=== PATIENT | female | born 1950 | race Caucasian/White ===

== ENCOUNTER 2017-03-17 11:44 | Observation (INO) | payer MEDICARE, BC ==
[~2017-03-17] VITALS: Ht 162.6 cm; Wt 69.0 kg
[2017-03-17 11:53] VITALS: BP 132/76; PULSE 96; RESP 16; TEMP 97.9; O2SAT 98
[2017-03-17] MEDS ORDERED: IBAN150T3 PO (11:58)
[2017-03-17] MEDS ORDERED: PROZ40CA PO (11:58)
[2017-03-17] MEDS ORDERED: ZOCO40TA PO (11:58)
[2017-03-17] MEDS ORDERED: LEVO100T5 PO (11:58)
--- NOTE | 2017-03-17 13:07 | PD ---
HPI Chief Complaint: Injury Time Seen by Provider: 11:53 Travel History International Travel<30 days: No Contact w/Intl Traveler<30days: No Traveled to known affect area: No History of Present Illness HPI 66-year-old female presents emergency department for evaluation of right elbow pain. Patient reports approximately 4 hours ago she tripped while in her condo falling onto her right elbow/forearm. She denies head injury or loss consciousness. She reports throbbing pain only in the elbow worse with range of motion and relieved with rest. Severity 3/10. She denies numbness/tingling/ weakness in the extremity. Patient is right-hand dominant. Patient has full range of motion of the shoulder, elbow, wrist, fingers. She denies any other injury. PFSH Past Medical History Narrative Medical Significant for hyperlipidemia, depression, hypothyroidism Anxiety: Yes High Cholesterol: Yes Diminished Hearing: No Thyroid Disease: Yes Tetanus Vaccination: Unknown ?: Not Past Surgical History Hysterectomy: Yes Social History Alcohol Use: No Tobacco Use: No Substance Use: No Allergies-Medications (Allergen,Severity, Reaction): Coded Allergies: Penicillins (Verified Allergy, Unknown, 03/17/17) Reported Meds & Prescriptions Reported Meds & Active Scripts Active Reported Ibandronate (Ibandronate Sodium) 150 Mg Tab 150 Mg PO Q28D Levothyroxine (Levothyroxine Sodium) 100 Mcg Tab 100 Mcg PO DAILY Prozac (Fluoxetine HCl) 40 Mg Cap 40 Mg PO DAILY Zocor (Simvastatin) 40 Mg Tab 40 Mg PO DAILY Review of Systems Except as stated in HPI: all other systems reviewed are Neg General / Constitutional: No: Fever Eyes: No: Visual changes HENT: No: Headaches Cardiovascular: No: Chest Pain or Discomfort Respiratory: No: Shortness of Breath Gastrointestinal: No: Abdominal Pain Genitourinary: No: Dysuria Musculoskeletal: Positive: Pain (right elbow) Skin: No Rash Physical Exam Narrative GENERAL: Alert, well-appearing female in no acute distress. SKIN: Focused skin assessment warm/dry. 3 superficial abrasions to the right elbow. HEAD: Atraumatic. Normocephalic. EYES: Pupils equal and round. No scleral icterus. No injection or drainage. ENT: No nasal bleeding or discharge. Mucous membranes pink and moist. NECK: Trachea midline. No JVD. CARDIOVASCULAR: Regular rate and rhythm. No murmur appreciated. RESPIRATORY: No accessory muscle use. Clear to auscultation. Breath sounds equal bilaterally. GASTROINTESTINAL: Abdomen soft, non-tender, nondistended. Hepatic and splenic margins not palpable. MUSCULOSKELETAL: No obvious deformities. No clubbing. No cyanosis. Right upper extremity: Notable swelling and ecchymosis to the proximal portion of the ulna. Patient has full flexion and extension of the elbow. 2+ distal pulses. Normal sensation with 2-point discrimination. Brisk cap refill. NEUROLOGICAL: Awake and alert. No obvious cranial nerve deficits. Motor grossly within normal limits. Normal speech. PSYCHIATRIC: Appropriate mood and affect; insight and judgment normal. Data Data Last Documented VS Vital Signs Date Time Temp Pulse Resp B/P (MAP) Pulse Ox O2 Delivery O2 Flow Rate FiO2 03/17/17 11:53 97.9 96 16 132/76 (94) 98 Orders Orders Elbow, Complete (4 Vws) (03/17/17 ) Splint Or Brace Apply/Monitor (03/17/17 12:57) [facility] Medical Decision Making Medical Screen Exam Complete: Yes Emergency Medical Condition: Yes Differential Diagnosis Elbow fracture, forearm fracture, contusion Narrative Course 66-year-old female since emergency department for evaluation of right elbow pain status post trip and fall this morning. Patient has notable swelling and ecchymosis to the proximal forearm and elbow. There are 3 very superficial abrasions over the elbow. The patient has full range of motion and normal sensation within the extremity. X-ray pending X-ray of the right elbow: Olecranon fracture with 3 cm separation of fragments. Right upper extremity was placed in a posterior long arm splint and sling. Post -splint application reveal good alignment. The extremity is neurovascularly intact. 1315: Spoke with Dr. Jaimes tanning solution maker orthopedist who would like the patient admitted to medicine, nothing by mouth after midnight, and transferred to the [facility] for surgical repair tomorrow. Physician Communication Physician Communication 1315-spoke with Dr. Jaimes tanning solution maker orthopedist he would like patient admitted to medicine, nothing by mouth after midnight and transferred to the [facility] for surgery tomorrow. Diagnosis Primary Impression: Olecranon fracture Qualified Codes: S52.021A - Displaced fracture of olecranon process without intraarticular extension of right ulna, initial encounter for closed fracture Admitting Information Admitting Physician Requests: Admit Condition: Stable Ting Spears Mar 17, 2017 13:07
--- NOTE | 2017-03-17 13:11 | RADRPT ---
EXAM DATE/TIME: 03/17/2017 12:26 [facility] COMPARISON: No previous studies available for comparison. INDICATIONS : Right elbow pain after falling MEDICAL HISTORY : None. SURGICAL HISTORY : None. ENCOUNTER: Initial ACUITY: 1 day PAIN SCORE: 4/10 LOCATION: Right elbow FINDINGS: There is no fracture of the olecranon with 3 cm of distraction. The radial head is intact. The alicja kerry is intact. CONCLUSION: Olecranon fracture. Filipe Boggs MD FACR on March 17, 2017 at 13:09 Board Certified Radiologist. This report was verified electronically.
[2017-03-17 13:55] VITALS: O2SAT 98
[2017-03-17] MEDS ORDERED: MORPHINE SULFATE 4 MG/ML INJ IV PRN ×3 (14:00)
[2017-03-17] MEDS ORDERED: ACETAMINOPHEN/HYDROcodone 325 MG/10 MG TAB PO PRN (14:00)
[2017-03-17] MEDS ORDERED: SODIUM CHLORIDE 0.9% FLUSH 10 ML FLUSH IV FLUSH PRN (14:00)
[2017-03-17] MEDS ORDERED: SENNOSIDES 8.6 MG TAB PO PRN (14:00)
[2017-03-17] MEDS ORDERED: LACTULOSE SYRUP 20 GM/30 ML CUP PO PRN (14:00)
[2017-03-17] MEDS ORDERED: NALOXONE HCL 0.4 MG/ML AMP IV PRN (14:00)
[2017-03-17] MEDS ORDERED: BISACODYL 10 MG SUPP RECTAL PRN (14:00)
[2017-03-17] MEDS ORDERED: ONDANSETRON HCL 4 MG/2 ML VIAL IVP PRN (14:00)
[2017-03-17] MEDS ORDERED: ACETAMINOPHEN/HYDROcodone 325 MG/5 MG TAB PO PRN (14:00)
[2017-03-17] MEDS ORDERED: MAGNESIUM HYDROXIDE SUSP 30 ML CUP PO PRN (14:00)
[2017-03-17] MEDS ORDERED: ACETAMINOPHEN 325 MG TAB PO PRN ×2 (14:00)
[2017-03-17] MEDS ORDERED: ACETAMINOPHEN/HYDROcodone 325 MG/5 MG TAB PO ONE (14:15)
[2017-03-17 14:30] LABS: POTASSIUM 4.2 MEQ/L (3.5-5.1)
[2017-03-17 14:33] LABS: BICARBONATE 23.7 MEQ/L (21.0-32.0)
[2017-03-17 14:34] LABS: APTT (PATIENT) 22.1 SEC (24.3-30.1); PROTHROMBIN TIME - PATIENT 10.5 SEC (9.8-11.6)
--- NOTE | 2017-03-17 15:08 | RADRPT ---
EXAM DATE/TIME: 03/17/2017 13:48 [facility] COMPARISON: No previous studies available for comparison. INDICATIONS : Evaluate for communicable disease, pneumonia, and pneumothorax. Right elbow surgery MEDICAL HISTORY : None. SURGICAL HISTORY : Breast Reduction ENCOUNTER: Initial ACUITY: 1 day PAIN SCORE: 0/10 LOCATION: Bilateral chest FINDINGS: A single view of the chest demonstrates the lungs to be symmetrically aerated without evidence of mas s, infiltrate or effusion. The cardiomediastinal contours are unremarkable. Osseous structures are intact. CONCLUSION: No acute disease. Filipe Boggs MD FACR on March 17, 2017 at 15:06 Board Certified Radiologist. This report was verified electronically.
[2017-03-17 15:10] LABS: AUTOMATED NEUTROPHIL # 6.8 TH/MM3 (1.8-7.7); BASOPHIL % 0.3 % (0.0-2.0); EOSINOPHIL # 0.1 TH/MM3 (0-0.4); EOSINOPHIL % 0.6 % (0.0-4.0); HEMATOCRIT 41.3 % (35.0-46.0); HEMO FLAGS DIFF FINAL; LYMPH % 14.3 % (9.0-44.0); LYMPHOCYTE # 1.3 TH/MM3 (1.0-4.8); MEAN CELL VOLUME 85.4 FL (80.0-100.0); MEAN CORPUSCULAR HEMOGLOBIN 28.7 PG (27.0-34.0); MEAN CORPUSCULAR HGB CONC 33.6 % (32.0-36.0); NEUT % 77.8 % (16.0-70.0); PLATELET COUNT 166 TH/MM3 (150-450); RED BLOOD COUNT 4.84 MIL/MM3 (4.00-5.30); RED CELL DISTRIBUTION WIDTH 12.9 % (11.6-17.2); WHITE BLOOD COUNT 8.8 TH/MM3 (4.0-11.0)
--- NOTE | 2017-03-17 15:24 | HHI.HP ---
HPI Service [facility] Primary Care Physician Non-Staff Admission Diagnosis RIGHT OLECRANON FX Diagnoses: Chief Complaint: Right elbow pain Travel History International Travel<30 Days: No Contact w/Intl Traveler <30 Da: No Traveled to Known Affected Are: No History of Present Illness This is a 66 year old female with history of hyperlipidemia, hypothyroidism and depression. She is visiting from [place]. 4 hours prior to admission, patient tripped in her condo falling onto her right elbow. Denies head injury, loss of consciousness, neck pain and other injuries. She reports of severe throbbing pain in the right elbow worse with range of motion. No numbness. She has sustained right olecranon fracture and orthopedic information director recommended admission to medical service and transfer to [facility]. At this time, patient has no complaints. All other systems reviewed negative Review of Systems Except as stated in HPI: all other systems reviewed are Neg Past Family Social History Past Medical History As previously mentioned Past Surgical History Hysterectomy Reported Medications Ibandronate (Ibandronate Sodium) 150 Mg Tab 150 Mg PO Q28D Levothyroxine (Levothyroxine Sodium) 100 Mcg Tab 100 Mcg PO DAILY Prozac (Fluoxetine HCl) 40 Mg Cap 40 Mg PO DAILY Zocor (Simvastatin) 40 Mg Tab 40 Mg PO DAILY Allergies: Coded Allergies: Penicillins (Verified Allergy, Unknown, 03/17/17) Physical Exam Vital Signs Vital Signs Date Time Temp Pulse Resp B/P (MAP) Pulse Ox O2 Delivery O2 Flow Rate FiO2 03/17/17 13:55 98 21 03/17/17 11:53 97.9 96 16 132/76 (94) 98 Physical Exam GENERAL: This is a well-nourished, well-developed patient, in no apparent distress. SKIN: No rashes, ecchymoses or lesions. Cool and dry. HEAD: Atraumatic. Normocephalic. No temporal or scalp tenderness. EYES: Pupils equal round and reactive. Extraocular motions intact. No scleral icterus. No injection or drainage. ENT: Nose without bleeding, purulent drainage or septal hematoma. Throat without erythema, tonsillar hypertrophy or exudate. Uvula midline. Airway patent. NECK: Trachea midline. No JVD or lymphadenopathy. Supple, nontender, no meningeal signs. CARDIOVASCULAR: Regular rate and rhythm without murmurs, gallops, or rubs. Distant heart sounds RESPIRATORY: Clear to auscultation. Breath sounds equal bilaterally. No wheezes , rales, or rhonchi. GASTROINTESTINAL: Abdomen soft, non-tender, nondistended. No guarding. MUSCULOSKELETAL: Extremities without clubbing, cyanosis, or edema. Right upper extremity in a splint. Exposed digits without deformity. CRanial nerves II through XII intact. Motor and sensory grossly within normal limits. Five out of 5 muscle strength in all muscle groups. Normal speech. Laboratory Laboratory Tests Test 03/17/17 14:10 White Blood Count 8.8 Red Blood Count 4.84 Hemoglobin 13.9 Hematocrit 41.3 Mean Corpuscular Volume 85.4 Mean Corpuscular Hemoglobin 28.7 Mean Corpuscular Hemoglobin Concent 33.6 Red Cell Distribution Width 12.9 Platelet Count 166 Mean Platelet Volume 9.3 Neutrophils (%) (Auto) 77.8 Lymphocytes (%) (Auto) 14.3 Monocytes (%) (Auto) 7.0 Eosinophils (%) (Auto) 0.6 Basophils (%) (Auto) 0.3 Neutrophils # (Auto) 6.8 Lymphocytes # (Auto) 1.3 Monocytes # (Auto) 0.6 Eosinophils # (Auto) 0.1 Basophils # (Auto) 0.0 CBC Comment DIFF FINAL Differential Comment Prothrombin Time 10.5 Prothromb Time International Ratio 1.0 Activated Partial Thromboplast Time 22.1 Blood Urea Nitrogen 14 Creatinine 0.84 Random Glucose 100 Calcium Level 8.6 Sodium Level 139 Potassium Level 4.2 Chloride Level 108 Carbon Dioxide Level 23.7 Anion Gap 7 Estimat Glomerular Filtration Rate 68 Result Diagram: 03/17/17 1410 03/17/17 1410 Imaging EKG tracing reviewed by me with sinus rhythm no acute ST-T changes Chest x-ray image interpreted by me with no acute cardiopulmonary disease Elbow x-ray shows reviewed by me with olecranon fracture Last Impressions Chest X-Ray 03/17/17 1342 Signed Impressions: Service Date/Time: Friday, March 17, 2017 13:48 - CONCLUSION: No acute disease. Filipe Boggs MD FACR Elbow X-Ray 03/17/17 0000 Signed Impressions: Service Date/Time: Friday, March 17, 2017 12:26 - CONCLUSION: Olecranon fracture. Filipe Boggs MD FACR Caprini VTE Risk Assessment Caprini VTE Risk Assessment: Mod/High Risk (score >= 2) Caprini Risk Assessment Model Point Value = 1 Point Value = 2 Point Value = 3 Point Value = 5 Age 41-60 Minor surgery BMI > 25 kg/m2 Swollen legs Varicose veins or History of unexplained or recurrent spontaneous Oral contraceptives or hormone replacement Sepsis (< 1 month) Serious lung disease, including pneumonia (< 1 month) Abnormal pulmonary function Acute myocardial infarction Congestive heart failure (< 1 month) History of inflammatory bowel disease Medical patient at bed rest Age 61-74 Arthroscopic surgery Major open surgery (> 45 min) Laparoscopic surgery (> 45 min) Malignancy Confined to bed (> 72 hours) Immobilizing plaster cast Central venous access Age >= 75 History of VTE Family history of VTE Factor V Leiden Prothrombin [id number] Lupus anticoagulant Anticardiolipin antibodies Elevated serum homocysteine Heparin-induced thrombocytopenia Other congenital or acquired thrombophilia Stroke (< 1 month) Elective arthroplasty Hip, pelvis, or leg fracture Acute spinal cord injury (< 1 month) Prophylaxis Regimen Total Risk Factor Score Risk Level Prophylaxis Regimen 0-1 Low Early ambulation 2 Moderate Order ONE of the following: *Sequential Compression Device (SCD) *Heparin 5000 units SQ BID 3-4 Higher Order ONE of the following medications: *Heparin 5000 units SQ TID *Enoxaparin/Lovenox 40 mg SQ daily (WT < 150 kg, CrCl > 30 mL/min) *Enoxaparin/Lovenox 30 mg SQ daily (WT < 150 kg, CrCl > 10-29 mL/min) *Enoxaparin/Lovenox 30 mg SQ BID (WT < 150 kg, CrCl > 30 mL/min) AND/OR *Sequential Compression Device (SCD) 5 or more Highest Order ONE of the following medications: *Heparin 5000 units SQ TID (Preferred with Epidurals) *Enoxaparin/Lovenox 40 mg SQ daily (WT < 150 kg, CrCl > 30 mL/min) *Enoxaparin/Lovenox 30 mg SQ daily (WT < 150 kg, CrCl > 10-29 mL/min) *Enoxaparin/Lovenox 30 mg SQ BID (WT < 150 kg, CrCl > 30 mL/min) AND *Sequential Compression Device (SCD) Assessment and Plan Problem List: (1) Olecranon fracture ICD Code: S52.023A - Displaced fracture of olecranon process without intraarticular extension of unspecified ulna, initialencounter for closed fracture Status: Acute Assessment and Plan This is a 66-year-old female with history of hyperlipidemia, hypothyroidism and depression. She presents to the emergency department complaining of right elbow pain after a mechanical fall. X-ray shows olecranon fracture. Right olecranon fracture status post mechanical fall. She needs definitive repair by orthopedic surgery. Nothing by mouth post midnight. Continue pain management with Lortab and IV morphine. Elevation with sling. Low risk for DVT Discussed Condition With pt and Problem Qualifiers (1) Olecranon fracture: Qualified Codes: S52.021A - Displaced fracture of olecranon process without intraarticular extension of right ulna, initial encounter for closed fracture Vincenzo Moore MD Mar 17, 2017 15:23
--- NOTE | 2017-03-17 16:01 | HHI.DCPOC ---
Discharge Care Plan Diagnosis: (1) Olecranon fracture Your Health Problems Are: Difficulty with ADL Skin Breakdown Exercise Tolerance Goals to Promote Your Health * To prevent worsening of your condition and complications * To maintain your health at the optimal level Directions to Meet Your Goals Take your medications as prescribed Follow your dietary instruction Follow activity as directed Keep your appointments as scheduled Take your immunizations and boosters as scheduled If your symptoms worsen call your PCP, if no PCP go to Urgent Care Center or Emergency Room Smoking is Dangerous to Your Health. Avoid second hand smoke Call the 24-hour hour crisis hotline for domestic abuse at Vincenzo Moore MD Mar 17, 2017 16:01
[2017-03-17 16:56] VITALS: BP 138/50
[2017-03-17 18:58] VITALS: BP 121/59; PULSE 79; RESP 17; TEMP 98; O2SAT 95
[2017-03-17] MEDS: DOCUSATE SODIUM 50 MG/SENNA 8.6 MG TAB PO SCH (20:51)
[2017-03-17] MEDS: SODIUM CHLORIDE 0.9% FLUSH 10 ML FLUSH IV FLUSH SCH (21:20)
[2017-03-17 21:57] VITALS: O2SAT 97
[2017-03-17 23:42] VITALS: BP 121/65; PULSE 75; RESP 17; TEMP 98.2; O2SAT 97
[2017-03-18 03:24] VITALS: BP 160/70; PULSE 74; RESP 17; TEMP 98.5; O2SAT 100
[2017-03-18] MEDS: LEVOTHYROXINE SODIUM 100 MCG TAB PO SCH (05:27)
[2017-03-18 07:10] VITALS: BP 136/67; PULSE 80; RESP 18; TEMP 98.3; O2SAT 95
--- NOTE | 2017-03-18 08:25 | HHI.PR ---
Subjective Remarks Follow up for right olecranon fracture. The patient reports her pain is worsening overnight, however fairly-well controlled with Meldrim. Denies any distal RUE numbness/tingling. Denies fevers/chills. 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 She believes the disorder is called Factor C, possibly protein C? She is unsure. She has had to be on anticoagulation and Lovenox injections in the past post surgery. Her last surgery was liposuction, was placed on Lovenox injections post procedure, and only developed superficial clots. The patient would like to go home later today after surgery if pain is fairly well controlled. She is visiting from [place]. Objective Vitals Vital Signs Date Time Temp Pulse Resp B/P (MAP) Pulse Ox O2 Delivery O2 Flow Rate FiO2 03/18/17 07:10 98.3 80 18 136/67 (90) 95 03/18/17 03:24 98.5 74 17 160/70 (100) 100 03/17/17 23:42 98.2 75 17 121/65 (83) 97 03/17/17 21:57 97 03/17/17 18:58 98.0 79 17 121/59 (79) 95 03/17/17 16:56 138/50 (79) 03/17/17 13:55 98 21 03/17/17 11:53 97.9 96 16 132/76 (94) 98 Result Diagram: 03/17/17 1410 03/17/17 1410 Imaging Last Impressions Chest X-Ray 03/17/17 1342 Signed Impressions: Service Date/Time: Friday, March 17, 2017 13:48 - CONCLUSION: No acute disease. Filipe Boggs MD FACR Elbow X-Ray 03/17/17 0000 Signed Impressions: Service Date/Time: Friday, March 17, 2017 12:26 - CONCLUSION: Olecranon fracture. Filipe Boggs MD FACR Objective Remarks GENERAL: Well-nourished, well-developed pleasant female patient in [facility]. SKIN: Warm and dry. No rash. HEENT: Normocephalic. Atraumatic.Pupils equal and round. Mucous membranes pink and moist. CARDIOVASCULAR: Regular rate and rhythm. S1, S2 noted. No murmur appreciated. RESPIRATORY: No accessory muscle use. Clear to auscultation. Breath sounds equal bilaterally. GASTROINTESTINAL: Abdomen soft, non-tender, nondistended. Normoactive bowel sounds x4. MUSCULOSKELETAL: No obvious deformities. RUE in splint and sling. Distal RUE sensation intact with brisk capillary refill. NEUROLOGICAL: Awake and alert. No obvious cranial nerve deficits. Motor grossly within normal limits. Normal speech. PSYCHIATRIC: Appropriate mood and affect; insight and judgment normal. Medications and IVs Current Medications Medications (Trade) Dose Ordered Sig/Bean Route Start Time Stop Time Status Last Admin (Synthroid) 100 mcg DAILY@0600 PO 03/18/17 06:00 03/18/17 05:27 (PROzac) 40 mg DAILY PO 03/18/17 09:00 (Pravachol) 80 mg DAILY PO 03/18/17 09:00 (NS Flush) 2 ml UNSCH PRN IV FLUSH 03/17/17 14:00 (NS Flush) 2 ml BID IV FLUSH 03/17/17 21:00 03/17/17 21:20 (Tylenol) 650 mg Q4H PRN PO 03/17/17 14:00 (Zofran Inj) 4 mg Q6H PRN IVP 03/17/17 14:00 (Tylenol) 650 mg Q6H PRN PO 03/17/17 14:00 (Meldrim 5-325 Mg) 1 tab Q4H PRN PO 03/17/17 14:00 03/17/17 20:52 (Meldrim 10-325 Mg) 1 tab Q4H PRN PO 03/17/17 14:00 03/18/17 05:27 (Morphine Inj) 1 mg Q3H PRN IV 03/17/17 14:00 (Morphine Inj) 2 mg Q3H PRN IV 03/17/17 14:00 (Morphine Inj) 2 mg Q3H PRN IV 03/17/17 14:00 (Narcan Inj) 0.4 mg UNSCH PRN IV 03/17/17 14:00 (Salma-Colace) 1 tab BID PO 03/17/17 21:00 03/17/17 20:51 (Milk Of Magnesia Liq) 30 ml Q12H PRN PO 03/17/17 14:00 (Senokot) 17.2 mg Q12H PRN PO 03/17/17 14:00 (Dulcolax Supp) 10 mg DAILY PRN RECTAL 03/17/17 14:00 (Lactulose Liq) 30 ml DAILY PRN PO 03/17/17 14:00 A/P Problem List: (1) Olecranon fracture ICD Code: S52.023A - Displaced fracture of olecranon process without intraarticular extension of unspecified ulna, initialencounter for closed fracture Status: Acute Assessment and Plan 66-year-old female visiting from [place], with history of HLD, clotting disorder, hypothyroidism and depression presents to the ED with right elbow pain after a mechanical fall. Right olecranon fracture s/p mechanical fall: R elbow xray images reviewed, shows olecranon fracture. Orthopedics consulted, plans for surgical repair today. Continue pain management with Lortab and IV morphine. Elevation with sling. Clotting Disorder: patient with multiple DVTs in the past post surgeries. 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 however patient unsure of the diagnosis. Will need to be on anticoagulation post surgery. DVT Prophylaxis: teds/SCDs; will need to be on anticoagulation post surgery Discharge Planning 0820hrs: Will discharge after surgery today if cleared by orthopedics and patient's pain well controlled on oral medications. Discharge patient to home Condition on discharge: Improved Regular Diet as tolerated Ad Jaye activity Rx written: Meldrim, Xarelto 10mg daily [id number] Follow-up with primary care physician and orthopedics Problem Qualifiers (1) Olecranon fracture: Qualified Codes: S52.021A - Displaced fracture of olecranon process without intraarticular extension of right ulna, initial encounter for closed fracture Marla Vega PA-C Mar 18, 2017 08:25
[2017-03-18] MEDS: FLUoxetine HCL 20 MG CAP PO SCH (09:15)
[2017-03-18] MEDS: DOCUSATE SODIUM 50 MG/SENNA 8.6 MG TAB PO SCH ×2 (09:15→21:29)
[2017-03-18] MEDS: PRAVASTATIN SOD 80 MG TAB PO SCH (09:15)
[2017-03-18] MEDS: SODIUM CHLORIDE 0.9% FLUSH 10 ML FLUSH IV FLUSH SCH ×2 (09:15→21:29)
--- NOTE | 2017-03-18 10:46 | EKG ---
Date Performed: 03/17/2017 Time Performed: 14:05:50 PTAGE: 66 years EKG: Sinus rhythm NORMAL ECG NO PREVIOUS TRACING DOCTOR: Nic Díaz Interpretating Date/Time 03/18/2017 10:46:00
[2017-03-18] MEDS ORDERED: NEOSTIGMINE 3 MG/3 ML SYR IV ONE (12:00)
[2017-03-18] MEDS ORDERED: ePHEDrine/NS 25 MG/5 ML SYR IV ONE (12:00)
[2017-03-18] MEDS ORDERED: PROPOFOL 200 MG/20 ML AMP IV ONE (12:00)
[2017-03-18] MEDS ORDERED: LACTATED RINGER'S 1000 ML INJ 1,000 ML IV ONE (12:00)
[2017-03-18] MEDS ORDERED: ONDANSETRON HCL 4 MG/2 ML VIAL IV PUSH ONE (12:00)
[2017-03-18 12:08] VITALS: BP 145/68; PULSE 82; RESP 18; TEMP 98.5; O2SAT 96
[2017-03-18] MEDS ORDERED: DEXAMETHASONE SOD PHOS 4 MG/ML VIAL ONE (12:49)
[2017-03-18] MEDS ORDERED: FAMOTIDINE 20 MG/2 ML VIAL ONE ×2 (12:49→15:17)
[2017-03-18] MEDS ORDERED: ACETAMINOPHEN 1000 MG/100 ML 0 ML IV ONE (12:49)
[2017-03-18] MEDS ORDERED: MIDAZOLAM HCL 2 MG/2 ML VIAL ONE (15:17)
[2017-03-18] MEDS ORDERED: ceFAZolin INJ 1,000 MG VIAL ONE (15:51)
[2017-03-18] MEDS ORDERED: VANCOMYCIN HCL 1000 MG VIAL ONE (15:51)
[2017-03-18] MEDS ORDERED: GENTAMICIN SULFATE 80 MG/2 ML VIAL ONE (15:52)
[2017-03-18] MEDS ORDERED: XARE10TA PO (16:59)
[2017-03-18] MEDS ORDERED: HYDR-3366 PO (16:59)
[2017-03-18] MEDS ORDERED: MORPHINE SULFATE 4 MG/ML INJ IV PUSH PRN (17:00)
[2017-03-18] MEDS ORDERED: Post-op Orders (for Pharmacy) MISC XX ONE (17:00)
--- NOTE | 2017-03-18 17:01 | PD.OP ---
cc: Berto Gregory MD Operative Report Date of Surgery: Mar 18, 2017 Preoperative Diagnosis: Comminuted intra-articular right olecranon fracture Postoperative Diagnosis: Procedure: Open reduction internal fixation right intra-articular olecranon fracture Anesthesia: Gen. Surgeon: Berto Gregory Metrology Technician(s): CORRIE Knight PA-C The surgical procedure was assisted by my physician hospital administrative assistant. My P.A. presence was necessary throughout this case for the manipulation and positioning of the surgical extremity. My P.A. was assisting me throughout the duration of this procedure. The skill set of a physician hospital administrative assistant was medically necessary to complete this procedure. During the surgical case the industrial service technician was working at the back table and the physician hospital administrative assistant was directly assisting me. Operation and Findings: Patient was seen and evaluated preoperatively. Patient was found to have a displaced intra-articular right olecranon fracture. The risk and benefits of the surgery were discussed in depth and informed consent was obtained. Risk of surgery include bleeding, infection, painful hardware, wound, case, elbow stiffness, loss of motion, elbow arthritis, injuries to arteries nerves or blood vessels, weakness and numbness of hand, as well as medical complications associated with general anesthesia. All questions were answered. Patient was brought to operating room. IV sedation and anesthesia were administered. Patient was placed into a lateral decubitus position. Timeout procedure was performed. IV antibiotics were administered prior to incision. The operative arm was prepped with alcohol followed by Hibiclens and draped in usual sterile fashion. Procedure began with a 4 inch incision over the olecranon. Subcutaneous tissue dissected with Bovie. Fracture site was visualized. Fascia was elevated around the fracture site. There was mild comminution of the fracture site. There is also depression of the articular surface. The joint surface was elevated. 15 cc of cancellus bone chips were opened. Cancellous bone was packed underneath the articular surface to give it additional support. Fracture fragments were gently manipulated. A fracture tenaculum was used to aid in reduction. Multiple K wires result provisional fixation. A Synthes proximal plate was selected. Plate was provisionally held with K wires 3.5 cortical screws were used to compress plate to bone. Multiple cortical screws were placed in the ulna shaft. Multiple locking screws were placed in the proximal ulna. All screws were predrilled and premeasured for appropriate length. K wires were removed. Final fluoroscopy revealed excellent of fractures well-placed hardware. Articular surface appeared to be in near anatomic alignment. Wound was now thoroughly irrigated. Incision was now closed with #1 Vicryl, 3-0 Vicryl, and jose. Sterile dressings were applied. Patient's placed a well molded well-padded splint. Patient was transferred to recovery in stable condition. Berto Gregory MD Mar 18, 2017 17:01
[2017-03-18] MEDS ORDERED: *morphine SULFATE 8 MG/ML PERIprocedure ONLY ONE ×2 (17:35→17:58)
--- NOTE | 2017-03-18 17:39 | MB ---
cc: SANDEE NOYOLA DATE OF CONSULTATION: 03/18/2017 REASON FOR CONSULTATION: Comminuted intra-articular right olecranon fracture. CONSULTING PHYSICIAN Dr. Vincenzo Moore RYLIE Beverly is a pleasant 66-year-old female who has a history of high cholesterol, hypertension and depression. She is visiting from [place]. [place] She fell forward and landed on her arms. She landed mostly on her right elbow. She had immediate right elbow pain. She presented to the emergency room where x-rays revealed a comminuted intra-articular olecranon fracture. She is currently awake and alert in the emergency department. Her only complaint is her right arm. The pain is worse with movement and is improved with rest. 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 She said that after surgery she developed DVTs. She may have a deficiency of protein C. PAST MEDICAL HISTORY Illnesses: 1. Hypothyroidism. 2. Depression. 3. High cholesterol. 4. Possible protein C deficiency. PAST SURGICAL HISTORY: Hysterectomy MEDICATIONS 1. Levothyroxine. 2. Prozac. 3. Zocor. ALLERGIES: NO KNOWN DRUG ALLERGIES. FAMILY HISTORY Noncontributory. SOCIAL HISTORY The patient lives with her in [place]. She denies tobacco or drug use. REVIEW OF SYSTEMS The patient denies headache, visual changes, neck pain, chest pain, shortness of breath, abdominal pain, or recent weight loss. She complains of right elbow pain. The pain is worse with movement. PHYSICAL EXAMINATION: The patient is a pleasant 66 year-old female in no acute distress. She is awake and alert. She is alert and oriented x3. She appears well-developed, well-nourished. VITAL SIGNS: Temperature 98.5, pulse 82, respiratory rate 18, blood pressure 145/68, O2 sat is 96% on room air. Head: The patient is normocephalic. Pupils are equal. Neck: Soft, nontender. Trachea is midline. Abdomen: Soft, nontender, nondistended. Extremities: Examination of right arm reveals no tenderness on her shoulder. She is diffusely tender on the elbow. She has a small abrasion on her elbow. Forearm compartments are soft. She has intact sensation in all fingers. She has good capillary refill in all fingers. Radial pulses is palpable. Examination of the left arm reveals no pain with shoulder, elbow or wrist motion. Skin is intact. Radial pulses palpable. Sensation is intact in all fingers. Examination of the bilateral lower extremities reveals no significant pain with hip, knee or ankle motion. Skin is intact in both feet. Dorsalis pedis pulses are palpable. X-RAYS: X-rays of right elbow were reviewed. X-rays reveal a comminuted displaced intra-articular olecranon fracture. IMPRESSION: 1. Hypothyroidism 2. Hypertension 3. Possible protein C deficiency 4. Comminuted intra-articular right olecranon fracture. PLAN Treatment options were discussed with the patient. At this point recommend open reduction, internal fixation of right olecranon. The risks of surgery include bleeding, infection, injury to arteries, nerves, blood vessels, nonunion, malunion, painful hardware, blood clot, stroke, heart attack and . All questions were answered. Will plan on surgery today. MD ROXANA Valdes/KAVITA /5:01 PM /5:29 PM
--- NOTE | 2017-03-18 17:43 | RADRPT ---
EXAM DATE/TIME: 03/18/2017 16:48 [facility] COMPARISON: ELBOW RIGHT COMPLETE (4 VWS), March 17, 2017, 12:26. INDICATIONS : ORIF of the right elbow. MEDICAL HISTORY : None. SURGICAL HISTORY : None. ENCOUNTER: Subsequent ACUITY: 2 days PAIN SCORE: Non-responsive. LOCATION: Right upper extremity FINDINGS: C-arm matrix views demonstrate placement of a J-shaped plate with multiple screws transfixing the ole cranon dorsally with excellent alignment and approximation of fracture fragments. No dislocation appr eciated. CONCLUSION: Surgical plating and screws transfixing and placing olecranon fracture into excellent alignment and a pproximation of fragments Stan Hilton MD on March 18, 2017 at 17:39 Board Certified Radiologist. This report was verified electronically.
[2017-03-18] MEDS ORDERED: DO NOT ADM ANY ANTICOAGULANT DRUGS PRN (19:00)
[2017-03-18 19:45] VITALS: BP 122/89; PULSE 92; RESP 18; TEMP 98.3; O2SAT 94
[2017-03-18 19:56] VITALS: O2SAT 98
[2017-03-18] MEDS ORDERED: RIVAROXABAN 10 MG TAB PO SCH (20:00)
[2017-03-18] MEDS: ACETAMINOPHEN/HYDROcodone 325 MG/10 MG TAB PO PRN (21:29)
[2017-03-18 23:50] VITALS: BP 113/65; PULSE 88; RESP 18; TEMP 97.6; O2SAT 94
[2017-03-19] MEDS ORDERED: ceFAZolin 2 GM PREMIX 50 ML IV SCH
[2017-03-19] MEDS: ACETAMINOPHEN/HYDROcodone 325 MG/10 MG TAB PO PRN ×2 (02:35→09:13)
[2017-03-19 03:35] VITALS: BP 112/71; PULSE 98; RESP 17; TEMP 98.8; O2SAT 94
[2017-03-19] MEDS: LEVOTHYROXINE SODIUM 100 MCG TAB PO SCH (04:28)
--- NOTE | 2017-03-19 06:42 | PD.ORT.PN ---
Subjective Subjective Remarks POd 1 s/p ORIF right olecranon doing well. states pain but manageable. Objective Vitals Vital Signs Date Time Temp Pulse Resp B/P (MAP) Pulse Ox O2 Delivery O2 Flow Rate FiO2 03/18/17 23:50 97.6 88 18 113/65 (81) 94 03/18/17 19:56 98 Nasal Cannula 2.00 03/18/17 19:45 98.3 92 18 122/89 (100) 94 03/18/17 18:30 97 15 127/62 (83) 98 Nasal Cannula 2 03/18/17 18:15 100 15 139/63 (88) 97 Nasal Cannula 2 03/18/17 18:00 101 15 129/63 (85) 97 Nasal Cannula 2 03/18/17 17:45 103 15 138/65 (89) 97 Nasal Cannula 2 03/18/17 17:30 102 15 153/81 (105) 97 Nasal Cannula 2 03/18/17 17:22 98.7 105 15 151/73 (99) 97 Nasal Cannula 3 03/18/17 12:08 98.5 82 18 145/68 (93) 96 03/18/17 07:10 98.3 80 18 136/67 (90) 95 I/O 03/18/17 03/18/17 03/18/17 03/19/17 03/19/17 03/19/17 07:00 15:00 23:00 07:00 15:00 23:00 Intake Total 1540 ml Output Total 150 ml Balance 1390 ml Intake Oral 240 ml Other 1300 ml Output Urine Total 50 ml Estimated Blood Loss 100 ml # Voids 1 2 # Bowel Movements 0 Result Diagram: 03/17/17 1410 03/17/17 1410 Objective Remarks RUE: +long arm splint. intact. NVI Assessment & Plan Assessment and Plan 1) Right Olecranon Fx s/p ORIF - POD 1 -NWB -maintain splint at all times -ortho cleared for DC -DVT prophylaxis wtih lovenox and DC with Xarelto due to hx of DVTs -Pain Rx on chart -f/u with Ortho at home in 2 weeks Allen Sanchez Mar 19, 2017 06:42
[2017-03-19 08:00] VITALS: BP 134/69; PULSE 90; RESP 17; TEMP 97.1; O2SAT 95
[2017-03-19] MEDS: PRAVASTATIN SOD 80 MG TAB PO SCH (09:13)
[2017-03-19] MEDS: FLUoxetine HCL 20 MG CAP PO SCH (09:13)
[2017-03-19] MEDS: DOCUSATE SODIUM 50 MG/SENNA 8.6 MG TAB PO SCH (09:13)
== END 2017-03-19 10:43 | disposition home or self-care (01) ==
LOC: PHEFT 11:44 → PHEDA 13:52 → NEPFCDU 17:32 → N06B 03-18 13:37
PROVIDERS: ADMIT Family Medicine; ATTEND Family Medicine
DX: S52.021A Displaced fracture of olecranon process without intraarticular extension of right ulna, initial encounter for closed fracture (principal); S50.311A Abrasion of right elbow, initial encounter; I10 Essential (primary) hypertension; E03.9 Hypothyroidism, unspecified; E78.00 Pure hypercholesterolemia, unspecified; W01.0XXA Fall on same level from slipping, tripping and stumbling without subsequent striking against object, initial encounter; Y92.019 Unspecified place in single-family (private) house as the place of occurrence of the external cause; Z01.818 Encounter for other preprocedural examination
CPT/HCPCS: 01740; 24685; 29105; 71010; 73080; 76000; 80048; 85025; 85610; 85730; 93005; 96365; 97162; 97166; 97535; 99285; C1713; G0378; G8987; G8988; J0690; J1580; J2250; J2270; J2405; J2710; J3010; J3370; J7120; J0131; J1100